=== PATIENT | female | born 2000 | race Two or more races ===

== ENCOUNTER 2025-04-07 15:22 | Outpatient (CLI) | payer OTHER | END 2025-04-07 15:23 | disposition home or self-care (01) | LOC: ULT 15:22 | PROVIDERS: ATTEND Nurse Practitioner | DX: O09.33 Supervision of pregnancy with insufficient antenatal care, third trimester (principal); Z3A.29 29 weeks gestation of pregnancy | CPT/HCPCS: 76805 ==